=== PATIENT | male | born 1985 | race Caucasian/White ===

== ENCOUNTER 2022-08-03 14:33 | Emergency (ER) | payer BC, SELFPAY ==
[2022-08-03 14:44] VITALS: BP 159/98; PULSE 131; RESP 16; TEMP 36.6; O2SAT 98
[2022-08-03 14:56] VITALS: O2SAT 98
--- NOTE | 2022-08-03 15:00 | ED.GENADULT ---
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 Total Bilirubin 0.5 (0.1-1.5) mg/dL Direct Bilirubin 0.3 (0.0-0.5) mg/dL AST 39 H (12-35) U/L ALT 36 (4-50) U/L Alkaline Phosphatase 129 (40-150) U/L C-Reactive Protein (0.5-1.0) mg/dL Total Protein 8.2 (6.0-8.3) g/dL Albumin 4.9 (3.3-5.0) g/dL Urine Color (Yellow) Urine Appearance (Clear) Urine pH (5.0-8.5) Ur Specific [place] (1.000-1.030) Urine Protein (Negative) Urine Glucose (UA) (Negative) Urine Ketones (Negative) Urine Blood (Negative) Urine Nitrite (Negative) Urine Bilirubin (Negative) Urine Urobilinogen (0.2-1.0) Ur Leukocyte Esterase (Negative) Urine RBC (0-2) Urine WBC (0-5) Ur Squamous Epith Cells (None-Few) Urine Bacteria (None) Urine Opiates Screen (Negative) Ur Oxycodone Screen (Negative) Urine Methadone Screen (Negative) Ur Propoxyphene Screen (Negative) Acetaminophen (10.0-30.0) ug/mL Ur Barbiturates Screen (Negative) U Tricyclic Antidepress (Negative) Ur Phencyclidine Scrn (Negative) Ur Amphetamines Screen (Negative) U Methamphetamines Scrn (Negative) U Benzodiazepines Scrn (Negative) Urine Cocaine Screen (Negative) U Marijuana (THC) Screen (Negative) Ur Drug Screen Comment Ethyl Alcohol (0.01-0.03) % SARS-CoV-2 (PCR) POSITIVE SARS-CoV-2 A (Negative) SARS-CoV-2 Ag (Rapid) negative (Negative) <Kasi Burrows MD - Last Filed: 08/04/22 07:36> Discharge Plan Discharge Clinical Impression: Alcoholic intoxication <Teodoro Benton MD - Last Filed: 08/03/22 18:51> Patient Disposition: Xfer Other <Teodoro Benton MD - Last Filed: 08/03/22 18:51> Condition: Improved <Teodoro Benton MD - Last Filed: 08/03/22 18:51> Additional Instructions: Will transfer to detox on a transfer hold. <Teodoro Benton MD - Last Filed: 08/03/22 18:51> Prescriptions: No Action methocarbamol 500 mg tablet doxepin 50 mg capsule Label Comments: TAKE 1 CAP BY MOUTH AT BEDTIME NEEDED FOR ANXIETY clonidine HCl 0.1 mg tablet Label Comments: TAKE 1 TABLET BY MOUTH EVERYDAY AT BEDTIME gabapentin 600 mg tablet Label Comments: TAKE 1 TABLET BY MOUTH TWICE A DAY venlafaxine 150 mg capsule,extended release 24hr PO Label Comments: TAKE 1 CAPSULE BY MOUTH DAILY quetiapine 100 mg tablet bupropion HCl 100 mg tablet sustained-release 12 hr PO Label Comments: TAKE 1 TABLET BY MOUTH TWICE A DAY hydroxyzine HCl 25 mg tablet mirtazapine 7.5 mg tablet Label Comments: TAKE 1-2 TABS BY MOUTH AT BEDTIME <Teodoro Benton MD - Last Filed: 08/03/22 18:51> Stand Alone Forms: [facility] Info Instructions <Teodoro Benton MD - Last Filed: 08/03/22 18:51>
[2022-08-03] MEDS: 0.9 % SODIUM CHLORIDE 1000 ml 1,000 ML 6000 ML IV (15:10)
[2022-08-03 15:13] LABS: Basophils Percent Auto 0.3 % (0.0-3.0); Eosinophils Percent Auto 0.3 % (0.0-7.0); Hematocrit 41.6 % (37.0-53.0); Hemoglobin* 13.6 gm/dL (13.5-17.5); Immature Granulocytes Pct Auto 0.5 %; Mean Corpuscular HGB Conc 33 gm/dL (32-36); Mean Corpuscular Hemoglobin 28 pg (26-34); Mean Corpuscular Volume 84 fL (80-100); Neutrophils Percent Auto 55.9 % (42.0-72.0); Platelet Count* 386 K/uL (140-440); RDW Coefficient of Variation % 15.4 % (11.5-15.5); Red Blood Count 4.94 m/uL (4.30-5.90); White Blood Count* 11.93 K/uL (4.50-11.00)
[2022-08-03] MEDS: LORazepam 2 MG/ML inj 0.5 MG IVP (15:16)
[2022-08-03 15:19] LABS: Slide Review Reflex No
[2022-08-03 15:20] LABS: Lactate* 5.5 mmol/L (0.5-1.9)
[2022-08-03 15:28] LABS: Chloride* 108 mmol/L (96-114); Potassium* 3.9 mmol/L (3.6-5.1); Sodium* 144 mmol/L (135-149)
[2022-08-03 15:31] LABS: Creatinine* 0.7 mg/dL (0.5-1.5); Estimated Glomerular Filt Rate 122 ml/min
[2022-08-03 15:32] LABS: Blood Urea Nitrogen* 15 mg/dL (5-24); Calcium* 8.6 mg/dL (8.4-10.6); Carbon Dioxide* 20 mmol/L (20-32); Glucose* 101 mg/dL (60-115)
[2022-08-03 15:35] LABS: C Reactive Protein* < 0.5 mg/dL (0.5-1.0)
[2022-08-03 15:56] LABS: Appearance Urine Clear (Clear); Bilirubin Urine Negative (Negative); Blood Urine Trace-lysed (Negative); Color Urine Yellow (Yellow); Glucose Urine Negative (Negative); Ketones Urine 2+ (Negative); Leukocyte Esterase Urine Negative (Negative); Nitrite Urine Negative (Negative); Protein Urine 2+ (Negative); Specific Gravity Urine >= 1.030 (1.000-1.030); Urobilinogen Urine 0.2 (0.2-1.0); pH Urine 5.5 (5.0-8.5)
[2022-08-03 16:04] LABS: Amphetamine Screen Urine Negative (Negative); Barbiturate Screen Urine Negative (Negative); Benzodiazepines Screen Urine Negative (Negative); Cannabinoid Screen Urine Negative (Negative); Cocaine Screen Urine Negative (Negative); Methadone Screen Urine Negative (Negative); Methamphetamines Screen Urine Negative (Negative); Opiate Screen Urine Negative (Negative); Oxycodone Screen Urine Negative (Negative); Phencyclidine Screen Urine Negative (Negative)
[2022-08-03 16:05] LABS: Tricyclic Antidepressant Urine POSITIVE (Negative)
[2022-08-03 16:11] LABS: Acetaminophen* < 10.0 ug/mL (10.0-30.0)
[2022-08-03 16:16] LABS: Ethanol* 0.33 % (0.01-0.03)
[2022-08-03 16:20] LABS: Squamous Epithelial Cell Urine Few (None-Few); WBC Urine 0-2 (0-5)
[2022-08-03 16:22] LABS: Albumin* 4.9 g/dL (3.3-5.0)
[2022-08-03 16:25] LABS: Alanine Aminotransferase* 36 U/L (4-50); Alkaline Phosphatase* 129 U/L (40-150); Aspartate Amino Transferase* 39 U/L (12-35); Bilirubin Direct* 0.3 mg/dL (0.0-0.5); Bilirubin Total* 0.5 mg/dL (0.1-1.5); Total Protein* 8.2 g/dL (6.0-8.3)
[2022-08-03 17:37] LABS: SARS PCR* POSITIVE SARS-CoV-2 (Negative)
[2022-08-03 18:38] LABS: SARS Antigen* negative (Negative)
[2022-08-03] MEDS: OMEPRAZOLE 20 MG CAPSULE DR PO (18:45)
[2022-08-03] MEDS: LORazepam 1 MG TABLET PO ×2 (18:50→23:46)
[2022-08-03 19:00] VITALS: BP 154/97; PULSE 113; RESP 16; TEMP 36.7; O2SAT 97
[2022-08-03 21:00] VITALS: BP 161/96; PULSE 109; RESP 16; O2SAT 97
[2022-08-03] MEDS: LORazepam 1 MG TABLET 2 MG PO (21:21)
[2022-08-03] MEDS: FAMOTIDINE 20 MG TABLET 40 MG PO (21:23)
--- NOTE | 2022-08-03 22:00 | ED.NURSE ---
patient has been cooperative, pleasant. pt verbalizes when he feels he is getting agitated. states ativan has been effective in controlling agtitaion. pt verbally agreeable to detox
[2022-08-03 23:02] VITALS: BP 158/88; PULSE 101; RESP 16; TEMP 36.9; O2SAT 97
--- NOTE | 2022-08-03 23:47 | ED.NURSE ---
patient states acid reflux has resolved.
[2022-08-04] MEDS: OLANZapine 5 MG TAB.RAPDIS PO (00:59)
[2022-08-04] MEDS: LORazepam 1 MG TABLET PO ×2 (00:59→07:50)
[2022-08-04 07:02] VITALS: BP 141/95; PULSE 112; RESP 16; O2SAT 98
--- NOTE | 2022-08-04 07:15 | ED.NURSE ---
Per sammy [facility] to give home meds. The following were given to patient: Bupropion 300mg, Gabepentin 600mg, oxycarbazepine 600mg, omeprazole 20mg, seroquel 100mg. Pills given with breakfast.
--- NOTE | 2022-08-04 07:36 | ED.NURSE ---
Confirmed with [facility] that they will continue to hold the bed for patient but to keep them in the loop with transport. Patient is currently cooperative. Does have visable tremors and sweating at this time.
--- NOTE | 2022-08-04 07:55 | ED.NURSE ---
Patient mentioned that he would like us to look into [facility] in [facility]. okay with us calling as mother might be more willing to drive patient to this facility due to the weather. Called this place and left a message.
--- NOTE | 2022-08-04 08:41 | ED.NURSE ---
Patient vomited a large amount in the sink. States I am not doing well. Requested medications from .
[2022-08-04] MEDS: ONDANSETRON 2 MG/ML inj 4 MG IVP (08:50)
[2022-08-04 09:00] VITALS: BP 147/90; PULSE 128; RESP 16; RESP 20; TEMP 36.5; O2SAT 95; O2SAT 96
--- NOTE | 2022-08-04 09:50 | ED_ITS ---
ED Chart Note Chart Note Details Date: 08/04/22 Details: This patient was signed over to me by 2 previous ER physician's, Dr. Solis , who initially saw the patient and Dr. Burrows we are currently awaiting transfer to a detox facility, but there is whether issues, currently. Nurse alerted me that his CIWA score was 16. I think at this point, on review of the chart he has not received any folic acid and B12, he did have 1 episode of vomiting today, we will give him IV Ativan, along with a banana bag currently, while we are waiting transfer. He will be watch closely, and further care will be rendered as needed. At this point he is medically stable for transport to the detoxificat ion facility.
[2022-08-04] MEDS: LORazepam 2 MG/ML inj 1 MG IVP (09:55)
[2022-08-04 11:41] VITALS: BP 145/104; PULSE 118; RESP 16; TEMP 36.5; O2SAT 95
--- NOTE | 2022-08-04 11:47 | ED.NURSE ---
Patient was transferred via EMS to [facility]. Patient had no belongings here. Mother updated via phone. All questions answered.
== END 2022-08-04 11:50 | disposition other institution (70) ==
PROVIDERS: Family Medicine; Emergency Provider Family Medicine
DX: F10.129 Alcohol abuse with intoxication, unspecified (principal); R45.88 Nonsuicidal self-harm
CPT/HCPCS: 36415; 80048; 80076; 80143; 80306; 81001; 82077; 83605; 85025; 86140; 87426; 87635; 94761; 96374; 96375; 96376; 99283; 99284; A9270; J2060; J2405; J3411; J7030

== ENCOUNTER 2022-08-04 11:28 | Outpatient (CLI) | payer BC, SELFPAY | END 2022-08-04 11:29 | disposition home or self-care (01) | LOC: AMB 08-05 11:41 | PROVIDERS: Visit Provider Family Medicine | DX: F10.129 Alcohol abuse with intoxication, unspecified (principal) | CPT/HCPCS: A0425; A0428 ==